=== PATIENT | female | born 1955 | race Two or more races ===

== ENCOUNTER 2017-12-05 11:53 | Emergency (ER) | payer OTHER ==
[2017-12-05 12:14] VITALS: BP 143/83; PULSE 56; TEMP 98.3; BMI 29.3
--- NOTE | 2017-12-05 12:54 | PDOC ---
History of Present Illness - General Chief Complaint: Pain, Acute Stated Complaint: leg pain Time Seen by Provider: 12/05/17 12:15 - History of Present Illness Initial Comments: 61-year-old female status post right ankle open reduction internal fixation. She had lites with the use of the Cam Walker. For the last 2 days she's had atraumatic right calf pain and swelling. She denies fever chills or night sweats. No chest pain shortness of breath. Used process control specialist number [id number] 12/05/17 12:50 12/05/17 12:55 Past History - Past Medical History Allergies/Adverse Reactions: Allergies Allergy/AdvReac Type Severity Reaction Status Date / Time tramadol Allergy Intermediate Itching Verified 12/05/17 12:11 ALLERGIC TO CERTAIN B/P MEDS- Allergy Uncoded 12/05/17 12:11 Home Medications: Ambulatory Orders Acetaminophen [Tylenol] 325 mg PO PRN 10/06/17 Atenolol [Tenormin -] 50 mg PO DAILY 10/06/17 Atorvastatin Ca [Lipitor] 20 mg PO DAILY 10/06/17 Omeprazole 20 mg PO DAILY 10/06/17 Anemia: No Asthma: No Cancer: No Cardiac Disorders: No CVA: No COPD: No CHF: No Dementia: No Diabetes: No (PRE- DIABETIC- DIET CONTROLLED) GI Disorders: Yes (GASTRITIS) Disorders: No HTN: Yes Hypercholesterolemia: Yes Liver Disease: No Seizures: No Thyroid Disease: No - Surgical History Abdominal Surgery: No Appendectomy: No Cardiac Surgery: No Cholecystectomy: No Lung Surgery: No Neurologic Surgery: No Orthopedic Surgery: No - Suicide/Smoking/Psychosocial Hx Smoking History: Never smoked Have you smoked in the past 12 months: No Information on smoking cessation initiated: No Hx Alcohol Use: No Drug/Substance Use Hx: No Substance Use Type: None *Physical Exam - Vital Signs Last Vital Signs Temp Pulse Resp BP Pulse Ox 98.3 F 56 L 16 143/83 100 12/05/17 12:11 12/05/17 12:11 12/05/17 12:11 12/05/17 12:11 12/05/17 12:11 - Physical Exam Comments: 12/05/17 12:51 General Appearance: Well-developed, well-nourished A&O 3 NAD Head: NC/AT Ears: External auditory canals are normal Nose: Normal no discharge Neck: Supple nontender without lymphadenopathy masses or thyromegaly Cardiac: S1 and S2 without murmurs no peripheral edema cyanosis or pallor; extremities are warm and well-perfused; capillary refill is less than 2 seconds without carotid bruits Lungs: CTA and Percussion no rales or rhonchi or wheezing breath sounds are full bilaterally Abdomen: Positive bowel sounds; soft nondistended, nontender, no guarding or rebound tenderness; no masses Musculoskeletal; Adequately aligned spine range of motion intact to spine and extremities. Right calf is soft but tender, there is no swelling, L calf is soft and NT. DP pulses are 2+ and symmetric. Skin: Normal color and temperature normal texture turgor no lesions or eruptions ED Treatment Course - RADIOLOGY Radiology Studies Ordered: Category Date Time Status DUPLEX VASCUL US-1 LEG [US] Stat Ultrasound 12/05/17 12:44 Ordered *DC/Admit/Observation/Transfer Diagnosis at time of Disposition: Strain of calf muscle - Discharge Dispostion Disposition: HOME Condition at time of disposition: Stable Admit: No - Referrals Referrals: Zoe Arias MD [Primary Care Provider] - Jagdish Garcia MD [Staff Physician] - - Patient Instructions Additional Instructions: Weight bear as tolerated with CAM boot Right lower extremity follow up with orthopedic surgery in 2-3 days. Return to ER if symptoms worsen, or go unresolved. - Post Discharge Activity
== END 2017-12-05 13:40 | disposition home or self-care (01) ==
LOC: JERFT 11:53
DX: S86.111A Strain of other muscle(s) and tendon(s) of posterior muscle group at lower leg level, right leg, initial encounter (principal); X58.XXXA Exposure to other specified factors, initial encounter; Y93.89 Activity, other specified; Y92.89 Other specified places as the place of occurrence of the external cause; Y99.8 Other external cause status; Z87.81 Personal history of (healed) traumatic fracture; I10 Essential (primary) hypertension; E78.00 Pure hypercholesterolemia, unspecified; K29.70 Gastritis, unspecified, without bleeding; R73.03 Prediabetes
CPT/HCPCS: 93971-TC; 99281-25